=== PATIENT | female | born 1995 | race Caucasian/White ===

== ENCOUNTER 2016-09-19 17:35 | Emergency (ER) | payer BC ==
--- NOTE | 2016-09-19 19:05 | ER Document Report ---
ED Medical Screen (RME) - General Chief Complaint: Vag Bleeding, +preg <12wks Stated Complaint: POSSIBLE THREAT Notes: 21 yo female c/o post coital vaginal bleeding. 6 weeks . G1. no cramping. Has appointment with Nikhil POWELL on Saturday. TRAVEL OUTSIDE OF THE [place] IN LAST 30 DAYS: No - Related Data Allergies/Adverse Reactions: ciprofloxacin [From Cipro] Allergy (Verified 08/15/15 06:40) ciprofloxacin HCl [From Cipro] Allergy (Verified 08/15/15 06:40) latex [Latex] Allergy (Verified 08/15/15 06:40) Sulfa (Sulfonamide Antibiotics) Allergy (Verified 08/15/15 06:40) Past Medical History - Social History Chew tobacco use (# tins/day): No Frequency of alcohol use: None Drug Abuse: None Pulmonary Medical History: Reports: Hx Asthma Past Surgical History: Reports: Hx Tonsillectomy - Immunizations Hx Diphtheria, Pertussis, Tetanus Vaccination: Yes
--- NOTE | 2016-09-19 23:07 | ER Document Report ---
ED GI/ - General Time seen by provider: 23:04 Mode of Arrival: Ambulatory Information source: Patient TRAVEL OUTSIDE OF THE [place] IN LAST 30 DAYS: No - HPI Patient complains to provider of: Vaginal bleeding Onset: Other - see HPI Context: LMP: 08/08/16 : 1 - General Chief Complaint: Vag Bleeding, +preg <12wks Stated Complaint: POSSIBLE THREAT Notes: Patient is a 21 year old female presenting to the emergency department complaining of some vaginal bleeding. Patient is about 5 weeks and 5 days . Patient's last menstrual period was 08/08/16. Patient states she has vaginal bleeding after having sex a few times. Patient has an appointment with her [facility] on 09/24/16. Patient states she is doing yoga and ploties at home. ( SHREE HUERTA) - Related Data Allergies/Adverse Reactions: ciprofloxacin [From Cipro] Allergy (Verified 08/15/15 06:40) ciprofloxacin HCl [From Cipro] Allergy (Verified 08/15/15 06:40) latex [Latex] Allergy (Verified 08/15/15 06:40) Sulfa (Sulfonamide Antibiotics) Allergy (Verified 08/15/15 06:40) Past Medical History - General Information source: Patient - Social History Smoking Status: Never Smoker Chew tobacco use (# tins/day): No Frequency of alcohol use: None Drug Abuse: None Family History: None Patient has suicidal ideation: No Patient has homicidal ideation: No Pulmonary Medical History: Reports: Hx Asthma Past Surgical History: Reports: Hx Tonsillectomy - Immunizations Hx Diphtheria, Pertussis, Tetanus Vaccination: Yes Review of Systems - Review of Systems Constitutional: No symptoms reported EENT: No symptoms reported Cardiovascular: No symptoms reported Respiratory: No symptoms reported Gastrointestinal: No symptoms reported Genitourinary: No symptoms reported Female Genitourinary: See HPI, Last menstrual period - 10/08/15, , Vaginal bleeding Musculoskeletal: No symptoms reported Skin: No symptoms reported Hematologic/Lymphatic: No symptoms reported Neurological/Psychological: No symptoms reported -: Yes All other systems reviewed and negative Physical Exam - Vital signs Interpretation: Normal - General General appearance: Appears well, Alert - HEENT Head: Normocephalic, Atraumatic Eyes: Normal Pupils: PERRL Nasal: Other - large nose ring Mucous membranes: Normal - Respiratory Respiratory status: No respiratory distress Chest status: Nontender Breath sounds: Normal Chest palpation: Normal - Cardiovascular Rhythm: Regular Heart sounds: Normal auscultation Murmur: No - Abdominal Inspection: Normal Distension: No distension Bowel sounds: Normal Tenderness: Nontender Organomegaly: No organomegaly - Back Back: Normal, Nontender - Extremities General upper extremity: Normal inspection, Normal ROM, Normal strength General lower extremity: Normal inspection, Normal ROM, Normal strength - Neurological Neuro grossly intact: Yes Cognition: Normal Orientation: AAOx4 Seney Coma Scale Eye Opening: Spontaneous Sara Coma Scale Verbal: Oriented Sara Coma Scale Motor: Obeys Commands Sara Coma Scale Total: 15 Speech: Normal - Psychological Associated symptoms: Normal affect, Normal mood - Skin Skin Temperature: Warm Skin Moisture: Dry - Vital signs Vitals: Temp Pulse Resp BP Pulse Ox 98.3 F 99 16 119/47 L 99 09/19/16 18:24 09/19/16 18:24 09/19/16 18:24 09/19/16 18:24 09/19/16 18:24 Course - Re-evaluation Re-evalutation: 09/19/16 23:12 Patient's ultrasound shows a 5 week 5 day IUP without abnormality. The patient is Rh-, blood type A-. (UYEN CA) - Vital Signs Vital signs: Temp Pulse Resp BP Pulse Ox 98.4 F 74 16 115/58 L 99 09/20/16 00:00 09/20/16 00:00 09/20/16 00:00 09/20/16 00:00 09/20/16 00:00 - Laboratory Laboratory results interpreted by me: 09/19/16 19:15 Beta HCG, Quant [id number] H (UYEN CA) (SHREE HUERTA) Scribe Documentation - Scribe Written by Scribe:: Shree Huerta (09/19/16 23:15) acting as scribe for :: Cedric
[2016-09-20 00:06] VITALS: BP 115/58
== END 2016-09-20 00:07 | disposition home or self-care (01) ==
LOC: ER 17:35
DX: O20.9 Hemorrhage in early pregnancy, unspecified (principal); O36.0910 Maternal care for other rhesus isoimmunization, first trimester, not applicable or unspecified; Z3A.01 Less than 8 weeks gestation of pregnancy; Z88.3 Allergy status to other anti-infective agents; Z91.040 Latex allergy status; Z88.2 Allergy status to sulfonamides
CPT/HCPCS: 99284; 86900; 86901; 36415; 86850; 84702; 76817; 93976; J2790